=== PATIENT | female | born 1985 | race Caucasian/White ===

== ENCOUNTER 2017-05-10 07:11 | Emergency (ER) | payer MEDICAID ==
[2012-12-23 12:32] VITALS: BMI 31.5
--- NOTE | 2017-05-10 08:03 | NUR ---
32Y/O FEMALE WITH SUBJECTIVE C/O OF CHEST TIGHTNESS SPO2 96 ON RA BILATERAL DIMINISHED BREATH SOUNDS THROUGHOUT ALL LUNA POSTERIORLY. POST [place] PT STATES TIGHTNESS HAS RESIDED SPO2 97ON ROOM AIR.
== END 2017-05-10 08:35 | disposition home or self-care (01) ==
LOC: D.ER 07:11
DX: T78.40XA Allergy, unspecified, initial encounter (principal); X58.XXXA Exposure to other specified factors, initial encounter; F17.200 Nicotine dependence, unspecified, uncomplicated

== ENCOUNTER 2017-06-22 16:48 | Emergency (ER) | payer MEDICAID ==
[2012-12-23 12:32] VITALS: BMI 31.5
== END 2017-06-22 16:49 | disposition home or self-care (01) ==
LOC: D.ER 16:48
DX: Z02.9 Encounter for administrative examinations, unspecified (principal)

== ENCOUNTER 2019-04-21 19:06 | Emergency (ER) | payer SELFPAY ==
[2012-12-23 12:32] VITALS: BMI 31.5
== END 2019-04-21 19:21 | disposition left against medical advice (07) ==
LOC: D.ER 19:06
DX: S61.012A Laceration without foreign body of left thumb without damage to nail, initial encounter (principal); W45.8XXA Other foreign body or object entering through skin, initial encounter; Y93.89 Activity, other specified; Y92.89 Other specified places as the place of occurrence of the external cause